=== PATIENT | male | born 1970 | race Caucasian/White ===

== ENCOUNTER 2017-01-11 14:16 | Emergency (ER) | payer OTHER ==
--- NOTE | 2017-01-11 15:01 | ED NURSING NOTES ---
Clinical Report - Nurses [facility] [address] [place] [address] 01/11/2017 14:19 Patient: MIKHAIL MATUTE SR TRIAGE Triage time 14:31. Acuity: LEVEL 4. --14:34 Gabrielle Heredia R.N. 14:31 01/11/17. BP: 138/76. HR: 68. RR: 18. O2 saturation: 100%. Temp: 98.6 F. Pain level now: 07/02. --14:34 Gabrielle Heredia R.N. Chief Complaint: RIGHT LOWER TOOTHACHE and SWELLING OF JAW / FACE. --15:12 Gabrielle Heredia R.N. Weight: 90.7 kg stated. Height/Length: 74 inches Per Patient. BMI: 25.7. --14:32 Gabrielle Heredia R.N. Medications None. --14:34 Gabrielle Heredia R.N. Allergies Penicillins. --14:34 Gabrielle Heredia R.N. Flagyl. --14:34 Gabrielle Heredia R.N. History Arrived by private vehicle. ( Right lower dental pain, broken teeth with facial swelling and pain radiating into the right ear.). Onset. (2 days ago.). He has a dental appointment scheduled (Monday). Treatment MEDICAL RECEPTION SPECIALIST: Took ibuprofen. (800 mg at 1230). PAST MEDICAL HX: ( Hx of dental surgery). SOCIAL HX: Smoker- current status unknown. History of drug use: marijuana. No alcohol use. --14:34 Gabrielle Heredia R.N. ADDITIONAL SURGERIES: "brain stem surgery". --14:50 Gabrielle Heredia R.N. Interventions ID band on patient. To treatment room. --14:34 Gabrielle Heredia R.N. PHYSICAL ASSESSMENT GENERAL / NEURO / PSYCH: Alert. Oriented X 4. Appears in pain. HEENT: Facial swelling present right sided. Dental decay (right lower molar area). RESPIRATORY: Respirations not labored. SKIN: Skin is warm. --14:35 Gabrielle Heredia R.N. NURSING PROGRESS NOTES Patient identifiers checked. Call light placed in reach. Bed placed in lowest position. Patient waiting for evaluation. --14:36 Gabrielle Heredia R.N. 15:00 01/11/2017 Hydrocodone-APAP (Hydrocodone-Acetaminophen) PO 5/325 mg Tablets 1 tab given. --15:05 Gabrielle Heredia R.N. DISPOSITION / DISCHARGE Departure time: 1510. Condition at departure: unchanged and stable. No learning barriers present. Discharge instructions provided and reviewed with the patient. Reviewed warnings (do not drive or operate heavy machinery while taking pain medications. Take all abx as prescribed until gone.). Reviewed medication(s) side effects information. Prescription(s) given to the patient. Reviewed referral to a dentist. Summary of care provided to referral provider. Patient verbalized understanding. Written instructions provided in Mongolian. The patient was discharged by the physician internet marketing assistant. He was discharged home and accompanied by spouse. He left the Emergency Department ambulatory and via private vehicle. Spouse driving. --15:11 Gabrielle Heredia R.N. 15:10 01/11/17. BP: 138/76. HR: 68. RR: 12. O2 saturation: 100%. Pain level now: 06/01. --15:11 Gabrielle Heredia R.N. Locked/Released at 01/11/2017 15:12 by Gabrielle Heredia R.N.
--- NOTE | 2017-01-11 15:01 | ED NURSING NOTES ---
Clinical Report - Nurses [facility] [address] [place] [address] 01/11/2017 14:19 Patient: MIKHAIL MATUTE SR TRIAGE Triage time 14:31. Acuity: LEVEL 4. --14:34 Gabrielle Heredia R.N. 14:31 01/11/17. BP: 138/76. HR: 68. RR: 18. O2 saturation: 100%. Temp: 98.6 F. Pain level now: 07/02. --14:34 Gabrielle Heredia R.N. Chief Complaint: RIGHT LOWER TOOTHACHE and SWELLING OF JAW / FACE. --15:12 Gabrielle Heredia R.N. Weight: 90.7 kg stated. Height/Length: 74 inches Per Patient. BMI: 25.7. --14:32 Gabrielle Heredia R.N. Medications None. --14:34 Gabrielle Heredia R.N. Allergies Penicillins. --14:34 Gabrielle Heredia R.N. Flagyl. --14:34 Gabrielle Heredia R.N. History Arrived by private vehicle. ( Right lower dental pain, broken teeth with facial swelling and pain radiating into the right ear.). Onset. (2 days ago.). He has a dental appointment scheduled (Monday). 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 (800 mg at 1230). PAST MEDICAL HX: ( Hx of dental surgery). SOCIAL HX: Smoker- current status unknown. History of drug use: marijuana. No alcohol use. --14:34 Gabrielle Heredia R.N. ADDITIONAL SURGERIES: "brain stem surgery". --14:50 Gabrielle Heredia R.N. Interventions ID band on patient. To treatment room. --14:34 Gabrielle Heredia R.N. PHYSICAL ASSESSMENT GENERAL / NEURO / PSYCH: Alert. Oriented X 4. Appears in pain. HEENT: Facial swelling present right sided. Dental decay (right lower molar area). RESPIRATORY: Respirations not labored. SKIN: Skin is warm. --14:35 Gabrielle Heredia R.N. NURSING PROGRESS NOTES Patient identifiers checked. Call light placed in reach. Bed placed in lowest position. Patient waiting for evaluation. --14:36 Gabrielle Heredia R.N. 15:00 01/11/2017 Hydrocodone-APAP (Hydrocodone-Acetaminophen) PO 5/325 mg Tablets 1 tab given. --15:05 Gabrielle Heredia R.N. DISPOSITION / DISCHARGE Departure time: 1510. Condition at departure: unchanged and stable. No learning barriers present. Discharge instructions provided and reviewed with the patient. Reviewed warnings (do not drive or operate heavy machinery while taking pain medications. Take all abx as prescribed until gone.). Reviewed medication(s) side effects information. Prescription(s) given to the patient. Reviewed referral to a dentist. Summary of care provided to referral provider. Patient verbalized understanding. Written instructions provided in Tongan. The patient was discharged by the physician college sports assistant. He was discharged home and accompanied by spouse. He left the Emergency Department ambulatory and via private vehicle. Spouse driving. --15:11 Gabrielle Heredia R.N. 15:10 01/11/17. BP: 138/76. HR: 68. RR: 12. O2 saturation: 100%. Pain level now: 06/01. --15:11 Gabrielle Heredia R.N. Locked/Released at 01/11/2017 15:12 by Gabrielle Heredia R.N.
--- NOTE | 2017-01-11 15:01 | ED CLINICAL REPORT ---
Clinical Report - Physicians/Mid Levels [facility] [address] [place] [address] 01/11/2017 14:19 Patient: MIKHAIL MATUTE SR Time Seen: 14:42; initial patient contact, initial documentation, patient care assumed. Arrived- By private vehicle. Historian- patient. HISTORY OF PRESENT ILLNESS Chief Complaint: DENTAL PAIN. This started 2 days ago and is still present. Pain described as moderate. No sore throat, mouth sores, nasal discharge or congestion or ear pain. No swollen jaw or jaw pain. He has had toothache, swelling of the face and facial pain. (states he is in middle of seeing dentist and having dental work done, some teeth will be removed, others repairs, extensive teeth issues secondary to having jaw broken when he was a kid, next appt 01/24). Similar symptoms previously: Chronically, milder. Recent medical care: The patient was seen recently in the office. REVIEW OF SYSTEMS No fever or difficulty breathing. All systems otherwise negative, except as recorded above. PAST HISTORY See nurses notes. ADDITIONAL PROBLEMS: Dental Pain. Dental Abscess. --00:44 Shira Rosales R.N.. Surgeries: (jaw surgery). SOCIAL HISTORY Heavy tobacco smoker. Occasional alcohol use. History of occasional drug use: marijuana. No recent travel. Is a local resident. He lives with spouse. ADDITIONAL NOTES The nursing notes have been reviewed with agreement regarding the chief complaint, HPI, ROS, PMH and patient medications and allergies. PHYSICAL EXAM Vital Signs: 01/11/2017 14:31 BP: 138/76. HR: 68. RR: 18. O2 saturation: 100%. Temp: 98.6 F. Pain level now: 9/10. Have been reviewed as normal and appear to be correct. Appearance: Alert. No acute distress. Head: Abnormal external inspection. Mild swelling of the right maxilla. Eyes: Pupils equal, round and reactive to light. Conjunctivae and eyelids normal. ENT: Severe, extensive dental decay with gingival tenderness (lower right second molar) (every tooth affected, either decay, broken or both, Lower R molar 3 gone, 2 broken with decay, 1 decay and broken). No gingival induration, swelling or fluctuance. Ears normal. Nose normal. Pharynx normal. Lips normal. Gums normal. No trismus present. Uvula midline. Neck: Normal inspection. Trachea midline. No adenopathy. Thyroid normal. Neck supple. Respiratory: No respiratory distress. Skin: Normal skin color. No rash. Normal skin turgor. Extremities: Extremities exhibit normal ROM. Extremities nontender. Neuro: Oriented X 3. No motor deficit. No sensory deficit. PROGRESS AND PROCEDURES Patient and spouse counseled in person regarding the patient's stable condition and diagnosis. 15:01. Differential Diagnosis: Other possible considerations: substance abuse, dental pain, caries, abscess. Above considerations are based on history and physical exam. Differential diagnosis was discussed with patient. Disposition: Discharged home in good and improved condition (15:01). Condition: good and stable. CLINICAL IMPRESSION Dental caries (extensive decay) INSTRUCTIONS Warnings: GENERAL WARNINGS: Return or contact your physician immediately if your condition worsens or changes unexpectedly, if not improving as expected, or if other problems arise. Specifically return if problem worsens. Prescription Medications: Zofran 4 mg: Take 1 orally every six hours as needed for nausea/vomiting. Dispense ten (10). No refills. Substitution is permissible. Cleocin 300 mg: take 1 capsule orally every 6 hours for 7 days. No refills. Substitution is permissible. [place] 5 mg / 325 mg tablets: take 1 to 2 orally every 6 hours as needed for pain. Dispense fifteen (15). No refills. Substitution is permissible. Follow-up: Follow up with a dentist in about two weeks as scheduled. Reason for referral: or sooner if needed. Summary of care provided to patient. Understanding of the discharge instructions verbalized. (Electronically signed by Krista Stock A.R.N.P. 01/11/2017 15:58)
--- NOTE | 2017-01-11 15:01 | ED ORDER SUMMARY ---
..... Patient: MIKHAIL MATUTE SR OrderSheet [facility] VisitID: [id number] [address] [place] [address] 46y, M Registration Date/Time: 01/11/2017 ORDER SHEET Weight: 90.7 kg (stated) Allergies: Penicillins, Flagyl GENERAL ORDERS: MEDICATION ORDERS: Hydrocodone-APAP PO 5/325 mg (NOW, HIGH ALERT MEDICATION) (14:52 01/11/2017 HBivens A.R.N.P.) (Ack 14:54 SStone R.N.) (15:05 SStone R.N.) IV FLUIDS: ORDER SHEET NOTES: [Electronically signed by Gabrielle Heredia R.N. (15:12 01/11/2017)] [Electronically signed by Krista StockREvensN.PEvens (15:58 01/11/2017)] [Electronically locked/signed by Gabrielle Heredia R.N. (15:12 01/11/2017)]
--- NOTE | 2017-01-11 15:01 | ED ORDER SUMMARY ---
..... Patient: MIKHAIL MATUTE SR OrderSheet [facility] VisitID: [id number] [address] [place] [address] 46y, M Registration Date/Time: 01/11/2017 ORDER SHEET Weight: 90.7 kg (stated) Allergies: Penicillins, Flagyl GENERAL ORDERS: MEDICATION ORDERS: Hydrocodone-APAP PO 5/325 mg (NOW, HIGH ALERT MEDICATION) (14:52 01/11/2017 HBivens A.R.N.P.) (Ack 14:54 SStone R.N.) (15:05 SStone R.N.) IV FLUIDS: ORDER SHEET NOTES: [Electronically signed by Gabrielle Heredia R.N. (15:12 01/11/2017)] [Electronically signed by Krista StockREvensN.PEvens (15:58 01/11/2017)] [Electronically locked/signed by Gabrielle Heredia R.N. (15:12 01/11/2017)]
--- NOTE | 2017-01-11 15:58 | ED MAR SUMMARY ---
..... Medication Administration Record [facility] [address] [place] [address] Patient: MIKHAIL MATUTE Visit ID: [id number] 46y, M Weight: 90.7 kg Height/Length: 74 in BMI: 25.7 ALLERGIES: Flagyl, Penicillins Given 15:00 01/11/2017 Gabrielle Heredia R.N. Medication Administered: HYDROCODONE-APAP [PO] (HYDROCODONE-ACETAMINOPHEN), Dose: 1 tab 5/325 mg Tablets PO. Medication Ordered: Hydrocodone-APAP PO 5/325 mg (NOW, HIGH ALERT MEDICATION).
--- NOTE | 2017-01-11 15:58 | ED MED RECONCILIATION SUMMARY ---
Patient: MIKHAIL MATUTE SR Medication Reconciliation Report [facility] VisitID: [id number] [address] [place] [address] 46y, M Registration Date/Time: 01/11/2017 Weight: 90.7 kg Height/Length: 74 in. BMI: 25.7 ALLERGIES: Flagyl, Penicillins The patient's Home Medications are listed below: NONE. The source(s) of the original Home Medication information: Not obtained. The following Medications were given to the patient in the Emergency Department: Hydrocodone-APAP [PO] PO 1 tab, administered: 01/11/2017 3:00:00 PM The following Medications were prescribed to the patient: Zofran 4 mg: Take 1 orally every six hours as needed for nausea/vomiting. Dispense ten (10). No refills. Substitution is permissible. -- Krista Stock A.R.N.P. Cleocin 300 mg: take 1 capsule orally every 6 hours for 7 days. No refills. Substitution is permissible. -- Krista Stock A.R.N.P. [place] 5 mg / 325 mg tablets: take 1 to 2 orally every 6 hours as needed for pain. Dispense fifteen (15). No refills. Substitution is permissible. -- Krista Stock A.R.N.P.
--- NOTE | 2017-01-11 15:58 | ED MAR SUMMARY ---
..... Medication Administration Record [facility] [address] [place] [address] Patient: MIKHAIL MATUTE Visit ID: [id number] 46y, M Weight: 90.7 kg Height/Length: 74 in BMI: 25.7 ALLERGIES: Flagyl, Penicillins Given 15:00 01/11/2017 Gabrielle Heredia R.N. Medication Administered: HYDROCODONE-APAP [PO] (HYDROCODONE-ACETAMINOPHEN), Dose: 1 tab 5/325 mg Tablets PO. Medication Ordered: Hydrocodone-APAP PO 5/325 mg (NOW, HIGH ALERT MEDICATION).
--- NOTE | 2017-01-11 15:58 | ED DISCHARGE INSTRUCTIONS ---
Patient: MIKHAIL MATUTE General Instructions [facility] VisitID: [id number] [place] [address] 46y, M Registration Date/Time: 01/11/2017 Dental caries (extensive decay) INSTRUCTIONS Warnings: GENERAL WARNINGS: Return or contact your physician immediately if your condition worsens or changes unexpectedly, if not improving as expected, or if other problems arise. Specifically return if problem worsens. Prescription Medications: Zofran 4 mg: Take 1 orally every six hours as needed for nausea/vomiting. Dispense ten (10). No refills. Substitution is permissible. Cleocin 300 mg: take 1 capsule orally every 6 hours for 7 days. No refills. Substitution is permissible. [place] 5 mg / 325 mg tablets: take 1 to 2 orally every 6 hours as needed for pain. Dispense fifteen (15). No refills. Substitution is permissible. Follow-up: Follow up with a dentist in about two weeks as scheduled. Reason for referral: or sooner if needed. Summary of care provided to patient. Understanding of the discharge instructions verbalized. ADDITIONAL INFORMATION Dental Cavity A dental cavity is a pit or crater in the enamel surface of the tooth. This exposes the sensitive inner layer of the tooth and causes pain. If untreated, the cavity will get bigger and may cause an infection or abscess in the root of the tooth. An infection in the tooth is a much more serious problem and may require a root canal or removal of the entire tooth. The tooth pain may be made worse by drinking hot or cold fluids. It may spread from the tooth to the ear or jaw on the same side. Home Care: Avoid hot and cold foods, and liquids since your tooth may be sensitive to temperature changes. If your tooth is chipped or cracked, or if there is a large open cavity, apply OIL OF CLOVES (available jtfx-iyd-eohfxgd in drug stores) directly to the tooth to reduce pain. Some pharmacies carry an dbzo-cpx-choqltc "toothache kit." This contains oil of cloves and a paste, which can be applied over the exposed tooth to decrease sensitivity. An ice pack on your jaw over the sore area may help to reduce pain. You may use acetaminophen (Tylenol) or ibuprofen (Motrin, Advil) to control pain, unless another pain medicine was prescribed. [ NOTE: If you have liver disease or ever had a stomach ulcer, talk with your doctor before using these medicines.] If you have signs of an infection, an antibiotic will be given. Take it as directed. Follow-Up with your dentist as directed. Although your pain may go away with the treatment given, only a dentist can fully evaluate and treat this problem to prevent further tooth damage. Get Prompt Medical Attention if any of the following occur: Redness or swelling of the face Pain worsens or spreads to the neck Fever over 100.5 F (38C) Unusual drowsiness; headache or stiff neck; weakness or fainting Pus drains from the tooth or gum Difficulty swallowing or breathing Dental Abscess A dental abscess is an infection of the tooth socket. It often starts with a crack or cavity in the tooth. A pocket of pus forms between the tooth and the bone. The infection causes pain and swelling of the gum, cheek or jaw. The pain is often made worse by drinking hot or cold fluids, or biting on hard foods. Pain may be felt in the facial sinus or in the ear. A severe infection can interfere with swallowing and breathing. In the emergency department or clinic, you will be started on an antibiotic. However, final treatment requires drainage of the pus. This can be done by removing the tooth or performing a root canal. A root canal is done by an oral surgeon and involves drilling an opening in the tooth to drain the pus. After the infection has healed, a crown is placed over the tooth. Home care The following guidelines will help you care for your abscess at home: Avoid hot and cold foods and liquids since your tooth may be sensitive to temperature changes. If your tooth is chipped or cracked, or if there is a large open cavity, applyoil of cloves(available egie-qxe-glidtpe in drug stores) directly to the tooth to reduce pain. Some pharmacies carry an slgs-qeo-qqrpfea "toothache kit". This contains oil of cloves and a paste, which can be applied over the exposed tooth to decrease sensitivity. Apply an ice pack (ice cubes in a plastic bag, wrapped in a towel) over the injured area for 20 minutes every 12 hours the first day for pain relief. Continue this 34 times a day until the pain and swelling goes away. You may use acetaminophen or ibuprofen to control pain, unless another medicine was prescribed. If you have chronic liver or kidney disease or ever had a stomach ulcer or GI bleeding, talk with your doctor before using these medicines. An antibiotic will be prescribed. Take it as directed until completed, even if you are feeling better sooner. Follow-up care Follow up as directed with a dentist or oral surgeon. Even though your pain may improve with the treatment given today, only a dentist or oral surgeon can provide full treatment for this problem. When to seek medical care Get prompt medical attention or contact your doctor if any of the following occur: Your face or eyelid becomes swollen or red Pain worsens or spreads to the neck Fever over 100.4F (38.0C) Unusual drowsiness; headache or stiff neck; weakness, or fainting Pus drains from the gum or tooth Difficulty talking, swallowing or breathing Unable to open your mouth wide Dental Pain A crack or cavity in the tooth, which exposes the sensitive inner area of the tooth can cause tooth pain. An infection in the gum or the root of the tooth can cause pain and swelling. The pain is often made worse by drinking hot or cold fluids, or biting on hard foods. Pain may spread from the tooth to the ear or jaw on the same side. Home Care: Avoid hot and cold foods and liquids since your tooth may be sensitive to temperature changes. If your tooth is chipped or cracked, or if there is a large open cavity, apply OIL OF CLOVES (available dlvb-ypt-ctqffwg in drug stores) directly to the tooth to reduce pain. Some pharmacies carry an aodr-ezu-muurfva "toothache kit." This contains a paste, which can be applied over the exposed tooth to decrease sensitivity. A cold pack on your jaw over the sore area may help reduce pain. You may use acetaminophen (Tylenol) or ibuprofen (Motrin, Advil) to control pain, unless another medicine was prescribed. [ NOTE: If you have chronic liver or kidney disease or ever had a stomach ulcer or GI bleeding, talk with your doctor before using these medicines.] If you have signs of an infection, an antibiotic will be given. Take it as directed. Follow-Up as directed with a dentist. Your pain may go away with the treatment given. However, only a dentist can fully evaluate and treat the cause and prevent the pain from coming back again. TOOTHACHE IS A SIGN OF DISEASE IN YOUR TOOTH AND SHOULD BE EXAMINED AND TREATED BY A DENTIST. Get Prompt Medical Attention if any of the following occur: Your face becomes swollen or red Pain worsens or spreads to the neck Fever over 100.4 F (38.0 C) Unusual drowsiness; headache or stiff neck; weakness or fainting Pus drains from the tooth Difficulty swallowing or breathing Ondansetron Oral disintegrating tablet What is this medicine? ONDANSETRON (on ETHEL se ted) is used to treat nausea and vomiting caused by chemotherapy. It is also used to prevent or treat nausea and vomiting after surgery. How should I use this medicine? These tablets are made to dissolve in the mouth. Do not try to push the tablet through the foil backing. With dry hands, peel away the foil backing and gently remove the tablet. Place the tablet in the mouth and allow it to dissolve, then swallow. While you may take these tablets with water, it is not necessary to do so. Talk to your loading unit operator regarding the use of this medicine in children. Special care may be needed. What side effects may I notice from receiving this medicine? Side effects that you should report to your doctor or health caretaker as soon as possible: allergic reactions like skin rash, itching or hives, swelling of the face, lips, or tongue breathing problems dizziness fast or irregular heartbeat feeling faint or lightheaded, falls fever and chills swelling of the hands and feet tightness in the chest Side effects that usually do not require medical attention (report to your doctor or health caretaker if they continue or are bothersome): constipation or diarrhea headache What may interact with this medicine? Do not take this medicine with any of the following medications: -apomorphine -cisapride -dofetilide -dronedarone -pimozide -thioridazine -ziprasidone This medicine may also interact with the following medications: -carbamazepine -phenytoin -rifampicin -tramadol -other medicines that prolong the QT interval (cause an abnormal heart rhythm) What if I miss a dose? If you miss a dose, take it as soon as you can. If it is almost time for your next dose, take only that dose. Do not take double or extra doses. Where should I keep my medicine? Keep out of the reach of children. Store between 2 and 30 degrees C (36 and 86 degrees F). Throw away any unused medicine after the expiration date. What should I tell my health care provider before I take this medicine? They need to know if you have any of these conditions: heart disease history of irregular heartbeat liver disease low levels of magnesium or potassium in the blood an unusual or allergic reaction to ondansetron, granisetron, other medicines, foods, dyes, or preservatives or trying to get breast-feeding What should I watch for while using this medicine? Check with your doctor or health caretaker as soon as you can if you have any sign of an allergic reaction. Clindamycin Hydrochloride Oral capsule What is this medicine? CLINDAMYCIN (HERBIE rFank) is a lincosamide antibiotic. It is used to treat certain kinds of bacterial infections. It will not work for colds, flu, or other viral infections. How should I use this medicine? Take this medicine by mouth with a full glass of water. Follow the directions on the prescription label. You can take this medicine with food or on an empty stomach. If the medicine upsets your stomach, take it with food. Take your medicine at regular intervals. Do not take your medicine more often than directed. Take all of your medicine as directed even if you think your are better. Do not skip doses or stop your medicine early. Talk to your loading unit operator regarding the use of this medicine in children. Special care may be needed. What side effects may I notice from receiving this medicine? Side effects that you should report to your doctor or health caretaker as soon as possible: allergic reactions like skin rash, itching or hives, swelling of the face, lips, or tongue dark urine pain on swallowing redness, blistering, peeling or loosening of the skin, including inside the mouth unusual bleeding or bruising unusually weak or tired yellowing of eyes or skin Side effects that usually do not require medical attention (report to your doctor or health caretaker if they continue or are bothersome): diarrhea itching in the rectal or genital area joint pain nausea, vomiting stomach pain What may interact with this medicine? chloramphenicol erythromycin kaolin products What if I miss a dose? If you miss a dose, take it as soon as you can. If it is almost time for your next dose, take only that dose. Do not take double or extra doses. Where should I keep my medicine? Keep out of the reach of children. Store at room temperature between 20 and 25 degrees C (68 and 77 degrees F). Throw away any unused medicine after the expiration date. What should I tell my health care provider before I take this medicine? They need to know if you have any of these conditions: kidney disease liver disease stomach problems like colitis an unusual or allergic reaction to clindamycin, lincomycin, or other medicines, foods, dyes like tartrazine or preservatives or trying to get breast-feeding What should I watch for while using this medicine? Tell your doctor or healthcare professional if your symptoms do not start to get better or if they get worse. Do not treat diarrhea with over the counter products. Contact your doctor if you have diarrhea that lasts more than 2 days or if it is severe and watery. Hydrocodone Bitartrate, Acetaminophen Oral tablet What is this medicine? ACETAMINOPHEN; HYDROCODONE (a set a ELYSE jaime fen; freddy droe KOE done) is a pain reliever. It is used to treat mild to moderate pain. How should I use this medicine? Take this medicine by mouth. Swallow it with a full glass of water. Follow the directions on the prescription label. If the medicine upsets your stomach, take the medicine with food or milk. Do not take more than you are told to take. Talk to your loading unit operator regarding the use of this medicine in children. This medicine is not approved for use in children. What side effects may I notice from receiving this medicine? Side effects that you should report to your doctor or health caretaker as soon as possible: allergic reactions like skin rash, itching or hives, swelling of the face, lips, or tongue breathing problems confusion feeling faint or lightheaded, falls stomach pain yellowing of the eyes or skin Side effects that usually do not require medical attention (report to your doctor or health caretaker if they continue or are bothersome): nausea, vomiting stomach upset What may interact with this medicine? alcohol antihistamines isoniazid medicines for depression, anxiety, or psychotic disturbances medicines for sleep muscle relaxants naltrexone narcotic medicines (opiates) for pain phenobarbital ritonavir tramadol What if I miss a dose? If you miss a dose, take it as soon as you can. If it is almost time for your next dose, take only that dose. Do not take double or extra doses. Where should I keep my medicine? Keep out of the reach of children. This medicine can be abused. Keep your medicine in a safe place to protect it from theft. Do not share this medicine with anyone. Selling or giving away this medicine is dangerous and against the law. Store at room temperature between 15 and 30 degrees C (59 and 86 degrees F). Protect from light. Keep container tightly closed. Throw away any unused medicine after the expiration date. Discard unused medicine and used packaging carefully. Pets and children can be harmed if they find used or lost packages. What should I tell my health care provider before I take this medicine? They need to know if you have any of these conditions: brain tumor Crohn's disease, inflammatory bowel disease, or ulcerative colitis drink more than 3 alcohol-containing drinks per day drug abuse or addiction head injury heart or circulation problems kidney disease or problems going to the bathroom liver disease lung disease, asthma, or breathing problems an unusual or allergic reaction to acetaminophen, hydrocodone, other opioid analgesics, other medicines, foods, dyes, or preservatives or trying to get breast-feeding What should I watch for while using this medicine? Tell your doctor or health caretaker if your pain does not go away, if it gets worse, or if you have new or a different type of pain. You may develop tolerance to the medicine. Tolerance means that you will need a higher dose of the medicine for pain relief. Tolerance is normal and is expected if you take the medicine for a long time. Do not suddenly stop taking your medicine because you may develop a severe reaction. Your body becomes used to the medicine. This does NOT mean you are addicted. Addiction is a behavior related to getting and using a drug for a non-medical reason. If you have pain, you have a medical reason to take pain medicine. Your doctor will tell you how much medicine to take. If your doctor wants you to stop the medicine, the dose will be slowly lowered over time to avoid any side effects. You may get drowsy or dizzy when you first start taking the medicine or change doses. Do not drive, use machinery, or do anything that may be dangerous until you know how the medicine affects you. Stand or sit up slowly. There are different types of narcotic medicines (opiates) for pain. If you take more than one type at the same time, you may have more side effects. Give your health care provider a list of all medicines you use. Your doctor will tell you how much medicine to take. Do not take more medicine than directed. Call emergency for help if you have problems breathing. The medicine will cause constipation. Try to have a bowel movement at least every 2 to 3 days. If you do not have a bowel movement for 3 days, call your doctor or health caretaker. Too much acetaminophen can be very dangerous. Do not take Tylenol (acetaminophen) or medicines that contain acetaminophen with this medicine. Many non-prescription medicines contain acetaminophen. Always read the labels carefully. You have been given the following additional information: Dental Cavity Tooth Abscess Dental Pain Ondansetron Oral disintegrating tablet Clindamycin Hydrochloride Oral capsule Hydrocodone Bitartrate, Acetaminophen Oral tablet (Electronically signed by Krista Stock A.R.N.PEvens 01/11/2017 15:58)
--- NOTE | 2017-01-11 15:58 | ED MED RECONCILIATION SUMMARY ---
Patient: MIKHAIL MATUTE SR Medication Reconciliation Report [facility] VisitID: [id number] [place] [address] 46y, M Registration Date/Time: 01/11/2017 Weight: 90.7 kg Height/Length: 74 in. BMI: 25.7 ALLERGIES: Flagyl, Penicillins The patient's Home Medications are listed below: NONE. The source(s) of the original Home Medication information: Not obtained. The following Medications were given to the patient in the Emergency Department: Hydrocodone-APAP [PO] PO 1 tab, administered: 01/11/2017 3:00:00 PM The following Medications were prescribed to the patient: Zofran 4 mg: Take 1 orally every six hours as needed for nausea/vomiting. Dispense ten (10). No refills. Substitution is permissible. -- Krista Stock A.R.N.P. Cleocin 300 mg: take 1 capsule orally every 6 hours for 7 days. No refills. Substitution is permissible. -- Krista Stock A.R.N.P. [place] 5 mg / 325 mg tablets: take 1 to 2 orally every 6 hours as needed for pain. Dispense fifteen (15). No refills. Substitution is permissible. -- Krista Stock A.R.N.P.
--- NOTE | 2017-01-11 15:58 | ED DISCHARGE INSTRUCTIONS ---
Patient: MIKHAIL MATUTE General Instructions [facility] VisitID: [id number] [place] [address] 46y, M Registration Date/Time: 01/11/2017 Dental caries (extensive decay) INSTRUCTIONS Warnings: GENERAL WARNINGS: Return or contact your physician immediately if your condition worsens or changes unexpectedly, if not improving as expected, or if other problems arise. Specifically return if problem worsens. Prescription Medications: Zofran 4 mg: Take 1 orally every six hours as needed for nausea/vomiting. Dispense ten (10). No refills. Substitution is permissible. Cleocin 300 mg: take 1 capsule orally every 6 hours for 7 days. No refills. Substitution is permissible. Rincon 5 mg / 325 mg tablets: take 1 to 2 orally every 6 hours as needed for pain. Dispense fifteen (15). No refills. Substitution is permissible. Follow-up: Follow up with a dentist in about two weeks as scheduled. Reason for referral: or sooner if needed. Summary of care provided to patient. Understanding of the discharge instructions verbalized. ADDITIONAL INFORMATION Dental Cavity A dental cavity is a pit or crater in the enamel surface of the tooth. This exposes the sensitive inner layer of the tooth and causes pain. If untreated, the cavity will get bigger and may cause an infection or abscess in the root of the tooth. An infection in the tooth is a much more serious problem and may require a root canal or removal of the entire tooth. The tooth pain may be made worse by drinking hot or cold fluids. It may spread from the tooth to the ear or jaw on the same side. Home Care: Avoid hot and cold foods, and liquids since your tooth may be sensitive to temperature changes. If your tooth is chipped or cracked, or if there is a large open cavity, apply OIL OF CLOVES (available npra-euz-rtrwezy in drug stores) directly to the tooth to reduce pain. Some pharmacies carry an aubc-cig-pgpsqxp "toothache kit." This contains oil of cloves and a paste, which can be applied over the exposed tooth to decrease sensitivity. An ice pack on your jaw over the sore area may help to reduce pain. You may use acetaminophen (Tylenol) or ibuprofen (Motrin, Advil) to control pain, unless another pain medicine was prescribed. [ NOTE: If you have liver disease or ever had a stomach ulcer, talk with your doctor before using these medicines.] If you have signs of an infection, an antibiotic will be given. Take it as directed. Follow-Up with your dentist as directed. Although your pain may go away with the treatment given, only a dentist can fully evaluate and treat this problem to prevent further tooth damage. Get Prompt Medical Attention if any of the following occur: Redness or swelling of the face Pain worsens or spreads to the neck Fever over 100.5 F (38C) Unusual drowsiness; headache or stiff neck; weakness or fainting Pus drains from the tooth or gum Difficulty swallowing or breathing Dental Abscess A dental abscess is an infection of the tooth socket. It often starts with a crack or cavity in the tooth. A pocket of pus forms between the tooth and the bone. The infection causes pain and swelling of the gum, cheek or jaw. The pain is often made worse by drinking hot or cold fluids, or biting on hard foods. Pain may be felt in the facial sinus or in the ear. A severe infection can interfere with swallowing and breathing. In the emergency department or clinic, you will be started on an antibiotic. However, final treatment requires drainage of the pus. This can be done by removing the tooth or performing a root canal. A root canal is done by an oral surgeon and involves drilling an opening in the tooth to drain the pus. After the infection has healed, a crown is placed over the tooth. Home care The following guidelines will help you care for your abscess at home: Avoid hot and cold foods and liquids since your tooth may be sensitive to temperature changes. If your tooth is chipped or cracked, or if there is a large open cavity, applyoil of cloves(available hdio-pkm-xmalfal in drug stores) directly to the tooth to reduce pain. Some pharmacies carry an mhsb-nyi-fupnlpr "toothache kit". This contains oil of cloves and a paste, which can be applied over the exposed tooth to decrease sensitivity. Apply an ice pack (ice cubes in a plastic bag, wrapped in a towel) over the injured area for 20 minutes every 12 hours the first day for pain relief. Continue this 34 times a day until the pain and swelling goes away. You may use acetaminophen or ibuprofen to control pain, unless another medicine was prescribed. If you have chronic liver or kidney disease or ever had a stomach ulcer or GI bleeding, talk with your doctor before using these medicines. An antibiotic will be prescribed. Take it as directed until completed, even if you are feeling better sooner. Follow-up care Follow up as directed with a dentist or oral surgeon. Even though your pain may improve with the treatment given today, only a dentist or oral surgeon can provide full treatment for this problem. When to seek medical care Get prompt medical attention or contact your doctor if any of the following occur: Your face or eyelid becomes swollen or red Pain worsens or spreads to the neck Fever over 100.4F (38.0C) Unusual drowsiness; headache or stiff neck; weakness, or fainting Pus drains from the gum or tooth Difficulty talking, swallowing or breathing Unable to open your mouth wide Dental Pain A crack or cavity in the tooth, which exposes the sensitive inner area of the tooth can cause tooth pain. An infection in the gum or the root of the tooth can cause pain and swelling. The pain is often made worse by drinking hot or cold fluids, or biting on hard foods. Pain may spread from the tooth to the ear or jaw on the same side. Home Care: Avoid hot and cold foods and liquids since your tooth may be sensitive to temperature changes. If your tooth is chipped or cracked, or if there is a large open cavity, apply OIL OF CLOVES (available icpd-adb-tokzbhd in drug stores) directly to the tooth to reduce pain. Some pharmacies carry an kcxs-yxg-hngqmlh "toothache kit." This contains a paste, which can be applied over the exposed tooth to decrease sensitivity. A cold pack on your jaw over the sore area may help reduce pain. You may use acetaminophen (Tylenol) or ibuprofen (Motrin, Advil) to control pain, unless another medicine was prescribed. [ NOTE: If you have chronic liver or kidney disease or ever had a stomach ulcer or GI bleeding, talk with your doctor before using these medicines.] If you have signs of an infection, an antibiotic will be given. Take it as directed. Follow-Up as directed with a dentist. Your pain may go away with the treatment given. However, only a dentist can fully evaluate and treat the cause and prevent the pain from coming back again. TOOTHACHE IS A SIGN OF DISEASE IN YOUR TOOTH AND SHOULD BE EXAMINED AND TREATED BY A DENTIST. Get Prompt Medical Attention if any of the following occur: Your face becomes swollen or red Pain worsens or spreads to the neck Fever over 100.4 F (38.0 C) Unusual drowsiness; headache or stiff neck; weakness or fainting Pus drains from the tooth Difficulty swallowing or breathing Ondansetron Oral disintegrating tablet What is this medicine? ONDANSETRON (on ETHEL se ted) is used to treat nausea and vomiting caused by chemotherapy. It is also used to prevent or treat nausea and vomiting after surgery. How should I use this medicine? These tablets are made to dissolve in the mouth. Do not try to push the tablet through the foil backing. With dry hands, peel away the foil backing and gently remove the tablet. Place the tablet in the mouth and allow it to dissolve, then swallow. While you may take these tablets with water, it is not necessary to do so. Talk to your director of compliance regarding the use of this medicine in children. Special care may be needed. What side effects may I notice from receiving this medicine? Side effects that you should report to your doctor or health regular senior care provider as soon as possible: allergic reactions like skin rash, itching or hives, swelling of the face, lips, or tongue breathing problems dizziness fast or irregular heartbeat feeling faint or lightheaded, falls fever and chills swelling of the hands and feet tightness in the chest Side effects that usually do not require medical attention (report to your doctor or health regular senior care provider if they continue or are bothersome): constipation or diarrhea headache What may interact with this medicine? Do not take this medicine with any of the following medications: -apomorphine -cisapride -dofetilide -dronedarone -pimozide -thioridazine -ziprasidone This medicine may also interact with the following medications: -carbamazepine -phenytoin -rifampicin -tramadol -other medicines that prolong the QT interval (cause an abnormal heart rhythm) What if I miss a dose? If you miss a dose, take it as soon as you can. If it is almost time for your next dose, take only that dose. Do not take double or extra doses. Where should I keep my medicine? Keep out of the reach of children. Store between 2 and 30 degrees C (36 and 86 degrees F). Throw away any unused medicine after the expiration date. What should I tell my health care provider before I take this medicine? They need to know if you have any of these conditions: heart disease history of irregular heartbeat liver disease low levels of magnesium or potassium in the blood an unusual or allergic reaction to ondansetron, granisetron, other medicines, foods, dyes, or preservatives or trying to get breast-feeding What should I watch for while using this medicine? Check with your doctor or health regular senior care provider as soon as you can if you have any sign of an allergic reaction. Clindamycin Hydrochloride Oral capsule What is this medicine? CLINDAMYCIN (HERBIE Frank) is a lincosamide antibiotic. It is used to treat certain kinds of bacterial infections. It will not work for colds, flu, or other viral infections. How should I use this medicine? Take this medicine by mouth with a full glass of water. Follow the directions on the prescription label. You can take this medicine with food or on an empty stomach. If the medicine upsets your stomach, take it with food. Take your medicine at regular intervals. Do not take your medicine more often than directed. Take all of your medicine as directed even if you think your are better. Do not skip doses or stop your medicine early. Talk to your director of compliance regarding the use of this medicine in children. Special care may be needed. What side effects may I notice from receiving this medicine? Side effects that you should report to your doctor or health regular senior care provider as soon as possible: allergic reactions like skin rash, itching or hives, swelling of the face, lips, or tongue dark urine pain on swallowing redness, blistering, peeling or loosening of the skin, including inside the mouth unusual bleeding or bruising unusually weak or tired yellowing of eyes or skin Side effects that usually do not require medical attention (report to your doctor or health regular senior care provider if they continue or are bothersome): diarrhea itching in the rectal or genital area joint pain nausea, vomiting stomach pain What may interact with this medicine? chloramphenicol erythromycin kaolin products What if I miss a dose? If you miss a dose, take it as soon as you can. If it is almost time for your next dose, take only that dose. Do not take double or extra doses. Where should I keep my medicine? Keep out of the reach of children. Store at room temperature between 20 and 25 degrees C (68 and 77 degrees F). Throw away any unused medicine after the expiration date. What should I tell my health care provider before I take this medicine? They need to know if you have any of these conditions: kidney disease liver disease stomach problems like colitis an unusual or allergic reaction to clindamycin, lincomycin, or other medicines, foods, dyes like tartrazine or preservatives or trying to get breast-feeding What should I watch for while using this medicine? Tell your doctor or healthcare professional if your symptoms do not start to get better or if they get worse. Do not treat diarrhea with over the counter products. Contact your doctor if you have diarrhea that lasts more than 2 days or if it is severe and watery. Hydrocodone Bitartrate, Acetaminophen Oral tablet What is this medicine? ACETAMINOPHEN; HYDROCODONE (a set a ELYSE jaime fen; freddy droe KOE done) is a pain reliever. It is used to treat mild to moderate pain. How should I use this medicine? Take this medicine by mouth. Swallow it with a full glass of water. Follow the directions on the prescription label. If the medicine upsets your stomach, take the medicine with food or milk. Do not take more than you are told to take. Talk to your director of compliance regarding the use of this medicine in children. This medicine is not approved for use in children. What side effects may I notice from receiving this medicine? Side effects that you should report to your doctor or health regular senior care provider as soon as possible: allergic reactions like skin rash, itching or hives, swelling of the face, lips, or tongue breathing problems confusion feeling faint or lightheaded, falls stomach pain yellowing of the eyes or skin Side effects that usually do not require medical attention (report to your doctor or health regular senior care provider if they continue or are bothersome): nausea, vomiting stomach upset What may interact with this medicine? alcohol antihistamines isoniazid medicines for depression, anxiety, or psychotic disturbances medicines for sleep muscle relaxants naltrexone narcotic medicines (opiates) for pain phenobarbital ritonavir tramadol What if I miss a dose? If you miss a dose, take it as soon as you can. If it is almost time for your next dose, take only that dose. Do not take double or extra doses. Where should I keep my medicine? Keep out of the reach of children. This medicine can be abused. Keep your medicine in a safe place to protect it from theft. Do not share this medicine with anyone. Selling or giving away this medicine is dangerous and against the law. Store at room temperature between 15 and 30 degrees C (59 and 86 degrees F). Protect from light. Keep container tightly closed. Throw away any unused medicine after the expiration date. Discard unused medicine and used packaging carefully. Pets and children can be harmed if they find used or lost packages. What should I tell my health care provider before I take this medicine? They need to know if you have any of these conditions: brain tumor Crohn's disease, inflammatory bowel disease, or ulcerative colitis drink more than 3 alcohol-containing drinks per day drug abuse or addiction head injury heart or circulation problems kidney disease or problems going to the bathroom liver disease lung disease, asthma, or breathing problems an unusual or allergic reaction to acetaminophen, hydrocodone, other opioid analgesics, other medicines, foods, dyes, or preservatives or trying to get breast-feeding What should I watch for while using this medicine? Tell your doctor or health regular senior care provider if your pain does not go away, if it gets worse, or if you have new or a different type of pain. You may develop tolerance to the medicine. Tolerance means that you will need a higher dose of the medicine for pain relief. Tolerance is normal and is expected if you take the medicine for a long time. Do not suddenly stop taking your medicine because you may develop a severe reaction. Your body becomes used to the medicine. This does NOT mean you are addicted. Addiction is a behavior related to getting and using a drug for a non-medical reason. If you have pain, you have a medical reason to take pain medicine. Your doctor will tell you how much medicine to take. If your doctor wants you to stop the medicine, the dose will be slowly lowered over time to avoid any side effects. You may get drowsy or dizzy when you first start taking the medicine or change doses. Do not drive, use machinery, or do anything that may be dangerous until you know how the medicine affects you. Stand or sit up slowly. There are different types of narcotic medicines (opiates) for pain. If you take more than one type at the same time, you may have more side effects. Give your health care provider a list of all medicines you use. Your doctor will tell you how much medicine to take. Do not take more medicine than directed. Call emergency for help if you have problems breathing. The medicine will cause constipation. Try to have a bowel movement at least every 2 to 3 days. If you do not have a bowel movement for 3 days, call your doctor or health regular senior care provider. Too much acetaminophen can be very dangerous. Do not take Tylenol (acetaminophen) or medicines that contain acetaminophen with this medicine. Many non-prescription medicines contain acetaminophen. Always read the labels carefully. You have been given the following additional information: Dental Cavity Tooth Abscess Dental Pain Ondansetron Oral disintegrating tablet Clindamycin Hydrochloride Oral capsule Hydrocodone Bitartrate, Acetaminophen Oral tablet (Electronically signed by Krista Stock A.R.N.PEvens 01/11/2017 15:58)
== END 2017-01-11 15:10 | disposition home or self-care (01) ==
LOC: ED SRH 14:16
DX: K02.9 Dental caries, unspecified (principal)